=== PATIENT | male | born 1995 | race Caucasian/White ===

== ENCOUNTER 2017-06-20 07:53 | Emergency (ER) | payer MEDICAID, OTHER ==
[2017-06-20 08:07] VITALS: BP 124/72
--- NOTE | 2017-06-20 08:22 | EDM.PDOC ---
ED HPI GENERAL MEDICAL PROBLEM - General Chief Complaint: ENT Problem Stated Complaint: COUGH Time Seen by Provider: 06/20/17 08:06 Source of Information: Reports: Patient, Family History Limitations: Reports: No Limitations - History of Present Illness INITIAL COMMENTS - FREE TEXT/NARRATIVE: 21 y.o.w. came to the ed because of a dry cough for a fwe days, no F/C/N/V or any other acute medical issues. BP 124/74 temp 34.9 pulse 65 pulse ox 98% on RA Onset Date: 06/19/17 Onset Time: 10:00 Duration: Day(s):, Intermittent Location: Reports: Chest Quality: Reports: Other (cough) Severity: Mild Improves with: Reports: Rest Worsens with: Reports: Movement Context: Reports: Other (dry cough) - Related Data Allergies Allergy/AdvReac Type Severity Reaction Status Date / Time No Known Allergies Allergy Verified 06/20/17 08:05 Home Meds: Home Meds Codeine/guaiFENesin [Robitussin AC] 1 ml PO BEDTIME PRN #20 ml 06/20/17 [Rx] Past Medical History - Past Health History Medical/Surgical History: Denies Medical/Surgical History Cardiovascular History: Reports: Other (See Below) Other Cardiovascular History: 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 Social & Family History - Tobacco Use Smoking Status *Q: Never Smoker - Caffeine Use Caffeine Use: Reports: Soda - Recreational Drug Use Recreational Drug Use: No ED ROS ENT - Review of Systems Review Of Systems: See Below Constitutional: Reports: No Symptoms HEENT: Reports: No Symptoms Respiratory: Reports: No Symptoms Cardiovascular: Reports: No Symptoms Endocrine: Reports: No Symptoms GI/Abdominal: Reports: No Symptoms : Reports: No Symptoms Musculoskeletal: Reports: No Symptoms Skin: Reports: No Symptoms Neurological: Reports: No Symptoms Psychiatric: Reports: No Symptoms Hematologic/Lymphatic: Reports: No Symptoms Immunologic: Reports: No Symptoms ED EXAM, ENT - Physical Exam Exam: See Below Exam Limited By: No Limitations General Appearance: Alert, WD/WN, No Apparent Distress Eye Exam: Bilateral Eye: Normal Inspection Ears: Normal External Exam Nose: Normal Inspection Mouth/Throat: Normal Inspection Head: Atraumatic, Normocephalic Neck: Normal Inspection, Supple, Non-Tender Respiratory/Chest: No Respiratory Distress, Lungs Clear Cardiovascular: Normal Peripheral Pulses, Regular Rate, Rhythm GI/Abdominal: Normal Bowel Sounds (Male) Exam: Deferred Rectal (Males) Exam: Deferred Back: Normal Inspection, Full Range of Motion Extremities: Normal Inspection, Normal Range of Motion Neurological: Alert, Oriented, CN II-XII Intact, Normal Cognition, Normal Gait Psychiatric: Normal Affect, Normal Mood Skin: Warm, Dry, Intact, Normal Color, No Rash Lymphatic: No Adenopathy Course - Vital Signs Text/Narrative:: 21 y.o.w. came to the ed because of a dry cough for a fwe days, no F/C/N/V or any other acute medical issues. BP 124/74 temp 34.9 pulse 65 pulse ox 98% on RA PE: WNWD WM =NAD. Lungs clear Impression: nonprod. cough Tx: Cough meds Plan: D/C with instructions Last Recorded V/S: Last Vital Signs Temp 34.9 C L 06/20/17 08:06 Pulse 69 06/20/17 08:06 Resp 18 06/20/17 08:06 BP 124/72 06/20/17 08:06 Pulse Ox 100 06/20/17 08:06 Departure - Departure Time of Disposition: 08:19 Disposition: Home, Self-Care 01 Condition: Good Clinical Impression: Cough in adult - Discharge Information Prescriptions: Codeine/guaiFENesin [Robitussin AC] 1 ml PO BEDTIME PRN #20 ml PRN Reason: severe cough Instructions: Cough, Adult, [id number] Referrals: PCP,None [Primary Care Provider] - Forms: ED Department Discharge Additional Instructions: Please take rubutussin as recommended for severe cough at night, please f/u, come back if your symptoms get worse acutely.
== END 2017-06-20 08:35 | disposition home or self-care (01) ==
LOC: FB.ED 07:53
DX: R05 Cough (principal)
CPT/HCPCS: 99283

== ENCOUNTER 2018-02-23 19:45 | Emergency (ER) | payer MEDICAID ==
[2018-02-23] MEDS ORDERED: Ketorolac 30 MG/ML SDV IM ONE (19:54)
--- NOTE | 2018-02-23 19:59 | EDM.PDOC ---
ED HPI GENERAL MEDICAL PROBLEM - General Chief Complaint: ENT Problem Stated Complaint: GENERAL Time Seen by Provider: 02/23/18 19:50 Source of Information: Reports: Patient, Family History Limitations: Reports: No Limitations - History of Present Illness INITIAL COMMENTS - FREE TEXT/NARRATIVE: Dae comes into [facility] ED this evening with a nonhealing lesion inside the mouth over the past few weeks. He has bitten this area in the past, and chewed at times to manage stress. There has been no bleeding or viktor swelling. He has an appt with PCP tomorrow for managment. 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 ED EXAM, GI/ABD - Physical Exam Exam: See Below Exam Limited By: No Limitations General Appearance: Alert, WD/WN, Anxious Eyes: Bilateral: Normal Appearance, EOMI Ears: Normal External Exam Nose: Normal Inspection Throat/Mouth: Normal Lips, Normal Gums, Normal Voice, Other (minor superficial ulceration involving buccal mucosa R side adjacent to cuspid) Neck: Normal Inspection, Supple, Non-Tender Respiratory/Chest: Lungs Clear, Normal Breath Sounds Cardiovascular: Regular Rate, Rhythm, No Murmur GI/Abdominal Exam: Normal Bowel Sounds, Soft, Non-Tender, No Organomegaly, No Mass (Male) Exam: Deferred Rectal (Males) Exam: Deferred Back Exam: Normal Inspection Extremities: Normal Inspection Neurological: Alert, Oriented, CN II-XII Intact, Normal Cognition, Normal Gait, No Motor/Sensory Deficits Psychiatric: Normal Affect, Anxious Skin Exam: Warm, Dry, Intact, Normal Color Lymphatic: No Adenopathy Course - Vital Signs Text/Narrative:: No meds were dispensed during ED visit. Last Recorded V/S: Last Vital Signs Temp Pulse 85 02/23/18 19:45 Resp 24 H 02/23/18 19:45 BP 113/88 02/23/18 19:45 Pulse Ox 100 02/23/18 19:45 - Orders/Labs/Meds Meds: Medications Discontinued Medications Generic Name Dose Route Start Last Admin Trade Name Lalito PRN Reason Stop Dose Admin Ketorolac Tromethamine 30 mg 02/23/18 19:54 Toradol IM 02/23/18 19:55 ONETIME ONE Departure - Departure Time of Disposition: 20:15 Disposition: Home, Self-Care 01 Condition: Good Clinical Impression: Lesion of buccal mucosa - Discharge Information *PRESCRIPTION DRUG MONITORING PROGRAM REVIEWED*: Not Applicable *COPY OF PRESCRIPTION DRUG MONITORING REPORT IN PATIENT ANN: Not Applicable Referrals: PCP,None [Primary Care Provider] - Forms: ED Department Discharge - Problem List & Annotations (1) Lesion of buccal mucosa SNOMED Code(s): 4461069032997082 Code(s): K13.70 - UNSPECIFIED LESIONS OF ORAL MUCOSA Status: Acute Current Visit: Yes Annotation/Comment:: Keep appt with PCP tomorrow for treatment of suspected benign ulceration. - Problem List Review Problem List Initiated/Reviewed/Updated: Yes - Assessment/Plan Plan: Follow up with PCP.
[2018-02-23 20:05] VITALS: BP 113/88
== END 2018-02-23 20:21 | disposition home or self-care (01) ==
LOC: FB.ED 19:45
DX: K13.70 Unspecified lesions of oral mucosa (principal)
CPT/HCPCS: 99282

== ENCOUNTER 2018-06-30 20:22 | Emergency (ER) | payer MEDICAID ==
[2018-06-30] MEDS ORDERED: Amoxicillin/Clavulanate K 875-125 MG Tab PO ONE (21:34)
--- NOTE | 2018-06-30 21:38 | EDM.PDOC ---
ED HPI GENERAL MEDICAL PROBLEM - General Chief Complaint: Skin Complaint Stated Complaint: RASH Time Seen by Provider: 06/30/18 20:22 Source of Information: Reports: Patient History Limitations: Reports: No Limitations - History of Present Illness INITIAL COMMENTS - FREE TEXT/NARRATIVE: 22 y.o.w.m came to the ed because of a ringworm rash at his right forearm. I have seen this pt a few days ago with a ringworm rash on both forearm a few days ago. He was given a presc. for lotrimin. The rash subsided 100% at his left forerm but got worse at his right forearm. Pt said, he put the lotrimin onto his arm before he tooka shower ant the lotrimin cream may have washed off during the shower. No other acute medical issues. BP 126/66 Pulse 78 RR 18 Pulse ox 98% on RA Temp 36.8 Onset Date: 06/29/18 Onset Time: 09:00 Duration: Day(s):, Intermittent Location: Reports: Upper Extremity, Right Quality: Reports: Other (rash) Severity: Mild Improves with: Reports: None Worsens with: Reports: None Context: Reports: Sick Contact Associated Symptoms: Reports: No Other Symptoms - Related Data Allergies Allergy/AdvReac Type Severity Reaction Status Date / Time No Known Allergies Allergy Verified 06/30/18 20:56 Home Meds: Home Meds Amoxicillin/Potassium Clav [Augmentin 875-125 Tablet] 1 each PO BID #20 tablet 06/30/18 [Rx] Clotrimazole [Lotrimin AF 1% Top Soln] 1 applic .XX BID 07/01/18 [History] Past Medical History - Past Health History Medical/Surgical History: Denies Medical/Surgical History Cardiovascular History: Reports: Other (See Below) Other Cardiovascular History: 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 Social & Family History - Family History Family Medical History: Noncontributory - Caffeine Use Caffeine Use: Reports: Coffee, Soda ED ROS GENERAL - Review of Systems Review Of Systems: See Below Constitutional: Reports: No Symptoms HEENT: Reports: No Symptoms Respiratory: Reports: No Symptoms Cardiovascular: Reports: No Symptoms Endocrine: Reports: No Symptoms GI/Abdominal: Reports: No Symptoms : Reports: No Symptoms Musculoskeletal: Reports: No Symptoms Skin: Reports: Rash (ringworm right forearm) Neurological: Reports: No Symptoms Psychiatric: Reports: No Symptoms Hematologic/Lymphatic: Reports: No Symptoms Immunologic: Reports: No Symptoms ED EXAM, SKIN/RASH Exam: See Below Exam Limited By: No Limitations General Appearance: Alert, WD/WN, Mild Distress Eye Exam: Bilateral Eye: Normal Inspection Ears: Normal External Exam, Normal Canal, Hearing Grossly Normal Nose: Normal Inspection, Normal Mucosa, No Blood Throat/Mouth: Normal Inspection, Normal Lips, Normal Teeth, Normal Gums, Normal Voice, No Airway Compromise Head: Atraumatic, Normocephalic Neck: Normal Inspection, Supple, Non-Tender, Full Range of Motion Respiratory/Chest: No Respiratory Distress, Lungs Clear, Normal Breath Sounds, No Accessory Muscle Use, Chest Non-Tender Cardiovascular: Normal Peripheral Pulses, Regular Rate, Rhythm, No Edema, No Gallop, No JVD, No Murmur, No Rub Peripheral Pulses: 1+: Radial (L) GI/Abdominal: Normal Bowel Sounds, Soft, Non-Tender, No Organomegaly, No Distention, No Abnormal Bruit, No Mass, Pelvis Stable (Male) Exam: Deferred Rectal (Males) Exam: Deferred Back Exam: Normal Inspection, Full Range of Motion Extremities: Normal Inspection, Normal Range of Motion, Non-Tender, No Pedal Edema, Normal Capillary Refill Neurological: Alert, Oriented, CN II-XII Intact, Normal Cognition, Normal Gait Psychiatric: Normal Affect Skin: Warm, Dry, Rash (ringworm rash right forearm) Location, Skin: Upper Extremity, Right Characteristics: Fine, Patchy Lymphatic: No Adenopathy Course - Vital Signs Text/Narrative:: 22 y.o.w.m came to the ed because of a ringworm rash at his right forearm. I have seen this pt a few days ago with a ringworm rash on both forearm a few days ago. He was given a presc. for lotrimin. The rash subsided 100% at his left forerm but got worse at his right forearm. Pt said, he put the lotrimin onto his arm before he tooka shower ant the lotrimin cream may have washed off during the shower. No other acute medical issues. BP 126/66 Pulse 78 RR 18 Pulse ox 98% on RA Temp 36.8 PE: WNWD WM with a ringworm rash right forearm with bacterial superinfection Impression: " Ringworm" right forearm with bacterial super infection Tx: Augmentin Reexam: Pt did well in the ed, will cont to apply Lotrimin onto the afected area after he took a shower Plan: D/C with instructions Last Recorded V/S: Last Vital Signs Temp 36.7 C 06/30/18 20:47 Pulse 60 06/30/18 21:57 Resp 18 06/30/18 21:57 BP 121/62 06/30/18 21:57 Pulse Ox 100 06/30/18 21:57 - Orders/Labs/Meds Meds: Medications Discontinued Medications Generic Name Dose Route Start Last Admin Trade Name Lalito PRN Reason Stop Dose Admin Amoxicillin/Clavulanate Potassium 1 tab 06/30/18 21:34 06/30/18 21:53 Augmentin 875 Mg/125 Mg PO 06/30/18 21:35 1 tab ONETIME ONE Administration Departure - Departure Time of Disposition: 21:35 Disposition: Home, Self-Care 01 Condition: Good Clinical Impression: Ringworm, Cellulitis - Discharge Information Prescriptions: Amoxicillin/Potassium Clav [Augmentin 875-125 Tablet] 1 each PO BID #20 tablet Instructions: Amoxicillin; Clavulanic Acid tablets, Body Ringworm Referrals: PCP,None [Primary Care Provider] - Forms: ED Department Discharge Additional Instructions: Please continue your Lotrimin cream application to right arm. Please take Augmentin as recommended, please follow up at clinic if not improving, come back if your symptoms get worse acutely.
[2018-06-30 21:58] VITALS: BP 121/62
== END 2018-06-30 21:59 | disposition home or self-care (01) ==
LOC: FB.ED 20:22
DX: L03.113 Cellulitis of right upper limb (principal); B35.9 Dermatophytosis, unspecified
CPT/HCPCS: 99282; A9270

== ENCOUNTER 2018-07-04 14:19 | Emergency (ER) | payer MEDICAID ==
[2018-07-04 14:44] VITALS: BP 115/79
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
== END 2018-07-04 15:04 | disposition home or self-care (01) ==
LOC: FB.ED 14:19
DX: T22.412A Corrosion of unspecified degree of left forearm, initial encounter (principal); T22.411A Corrosion of unspecified degree of right forearm, initial encounter
CPT/HCPCS: 99283

== ENCOUNTER 2018-08-11 20:29 | Emergency (ER) | payer MEDICAID ==
--- NOTE | 2018-08-11 22:08 | EDM.PDOC ---
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 1.5 months ago had onset of rash and right forearm left arm. He treated with bleach and follow-up treated with hydroperoxide. Rash has not gone away. She was topical [id number] antifungal cream and a topical antibiotic ointment. The rash has not improved. And the rash is still quite itchy. It has not changed in the past 1.5 months. They have a cat at home but the cat has not been scratching or clawing his arms nor has she slept with patient. - Related Data Allergies Allergy/AdvReac Type Severity Reaction Status Date / Time No Known Allergies Allergy Verified 07/04/18 14:36 Home Meds: Home Meds Amoxicillin/Potassium Clav [Augmentin 875-125 Tablet] 1 each PO BID #20 tablet 06/30/18 [Rx] Clotrimazole [Lotrimin AF 1% Top Soln] 1 applic .XX BID 07/01/18 [History] Fluconazole [Diflucan] 150 mg PO WEEKLY #4 tablet 08/11/18 [Rx] Terbinafine [LamISIL AT 1% Crm] 24 gm TP BID #1 tube 08/11/18 [Rx] Triamcinolone Acetonide [Triamcinolone Acetonide 0.5% Oint] 15 gm .XX BID #1 tube 08/11/18 [Rx] Past Medical History - Past Health History Medical/Surgical History: Denies Medical/Surgical History Cardiovascular History: Reports: Other (See Below) Other Cardiovascular History: 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 ED EXAM, GENERAL - Physical Exam Exam: See Below Exam Limited By: No Limitations (Is short statured anesthetic and then who is very pleasantly engaged in conversation) General Appearance: Alert, WD/WN, No Apparent Distress Eye Exam: Bilateral Eye: Normal Inspection Ears: Normal External Exam, Normal Canal, Hearing Grossly Normal, Normal TMs Ear Exam: Bilateral Ear: Auricle Normal, Canal Normal, TM normal Nose: Normal Inspection, Normal Mucosa, No Blood Throat/Mouth: Normal Inspection, Normal Lips, Normal Teeth, Normal Gums Head: Atraumatic, Normocephalic Neck: Normal Inspection, Supple, Non-Tender, Full Range of Motion Respiratory/Chest: No Respiratory Distress, Other (multiple scars on patient's chest from previous cardiovascular surgery) Cardiovascular: Normal Peripheral Pulses, Regular Rate, Rhythm, No Edema, No Gallop, No JVD, No Murmur, No Rub Peripheral Pulses: 1+: Carotid (L), Carotid (R), Radial (L), Radial (R) GI/Abdominal: Normal Bowel Sounds, Soft, Non-Tender, No Organomegaly, No Distention (Male) Exam: Deferred Rectal (Males) Exam: Deferred Back Exam: Normal Inspection Extremities: Normal Range of Motion, Non-Tender, No Pedal Edema, Normal Capillary Refill, Pedal Edema Neurological: Alert, Oriented, CN II-XII Intact, Normal Cognition, Normal Gait, Normal Reflexes, No Motor/Sensory Deficits Psychiatric: Normal Affect, Normal Mood Skin Exam: Warm, Dry, Intact, Other (Circumferential left dorsal proximal forearm has 2 separate 5 cm oval and a 6 cm oval raised centrifugal border of erythema with central patches of erythematous dry crusting patches within this border. Right forearm has 31 cm long with a proximal oval proximal 6 cm diameter and a distal 10 cm diameter almost "snowmen appearance " of a central patchy erythematous crusted dry dermis and has slightly raised edges. No linear angiopathy or cellulitis noted.) Course - Orders/Labs/Meds Orders: Active Orders 24 hr Category Date Time Status FUNGUS (MYCOLOGY) CULTURE Urgent Lab 08/11/18 21:12 Received Departure - Departure Time of Disposition: 21:00 (Quick look at microscope relates suggests buds but no hyphae seen. This suggested possible rosa. Patient was prescribed Diflucan for possible rosa one tablet a week for 4 weeks also will be using terfenadine twice a day to the right side and formulation and triamcinolone to the left side lesions. He'll follow-up with in a week at that time if the left forearm has improved then can apply the triamcinolone to the right arm to accelerate the right arm lesion healing and decrease the itch. and ingeneral apply the terfenibine bid to both arms.If it is a "ring worm lesion" it probably is trichphyton species and terfinabine should help. If it is rosa ( which was not seeon the skin scraping ) then diflucan should work. I took great pain to try both . there was no suggestion of s lesion under hs finger nails. With his cardiac surg (Abn av canal surgery and hypolastic left ventricle)hx it would be good to make sure he does not end up blood born fungus infection.) Disposition: Home, Self-Care 01 Condition: Good Clinical Impression: Fungal dermatitis, Ringworm, body - Discharge Information *PRESCRIPTION DRUG MONITORING PROGRAM REVIEWED*: Not Applicable *COPY OF PRESCRIPTION DRUG MONITORING REPORT IN PATIENT ANN: Not Applicable Prescriptions: Fluconazole [Diflucan] 150 mg PO WEEKLY #4 tablet Terbinafine [LamISIL AT 1% Crm] 24 gm TP BID #1 tube Triamcinolone Acetonide [Triamcinolone Acetonide 0.5% Oint] 15 gm .XX BID #1 tube Referrals: Lisa Atkins, INVESTIGATIVE ANALYST [Primary Care Provider] - Additional Instructions: It appears that you have a circumferential fungal infection [id number] pharmacy using is not work prescription for 10 - My Orders Last 24 Hours: My Active Orders 08/11/18 21:12 FUNGUS (MYCOLOGY) CULTURE Urgent - Assessment/Plan Last 24 Hours: My Active Orders 08/11/18 21:12 FUNGUS (MYCOLOGY) CULTURE Urgent
[2018-08-11 22:54] VITALS: BP 124/83
== END 2018-08-11 21:35 | disposition home or self-care (01) ==
LOC: FB.ED 20:29
DX: B35.4 Tinea corporis (principal)
CPT/HCPCS: 87101; 87220; 99283

== ENCOUNTER 2019-04-22 03:10 | Emergency (ER) | payer MEDICAID ==
[2019-04-22 03:24] VITALS: BP 114/75; PULSE 84
--- NOTE | 2019-04-22 03:39 | EDM.PDOC ---
ED HPI GENERAL MEDICAL PROBLEM - General Chief Complaint: General Stated Complaint: HEMROID Time Seen by Provider: 04/22/19 03:25 Source of Information: Reports: Patient History Limitations: Reports: No Limitations - History of Present Illness INITIAL COMMENTS - FREE TEXT/NARRATIVE: 23-year-old male who apparently has felt constipated all through yesterday. He states that he felt that he needed to have a bowel movement but he couldn't. He has been able to eat and drink normally today. He has had no vomiting. His had no fevers. His mother gave him an vkyu-jqc-klysqup laxative that was a generic form of Ex-Lax and apparently following this he had some small results at bowel movement and noted some bright red blood at the end of his stool. He only had a small amount of stool. This was that approximately 1 AM. Following the the counter laxative, he was having some diffuse abdominal cramping that was also associated with some nausea. He had no vomiting. He also had had a small amount of fecal incontinence earlier that was somewhat loose. Now he reports mild nausea with some abdominal cramping that he rates as a 5/10. He has been urinating normally. There are no other associated signs or symptoms. There are no other modifying factors. 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 He also had a cardiac catheterization. Social & Family History - Tobacco Use Smoking Status *Q: Never Smoker - Caffeine Use Caffeine Use: Reports: Coffee, Soda - Alcohol Use Alcohol Use History: Yes Alcohol Use Frequency: Rarely - Living Situation & Occupation Occupation: Unemployed Social History Comment: Lives at home with his mother. ED ROS GENERAL - Review of Systems Review Of Systems: See Below Constitutional: Reports: No Symptoms HEENT: Reports: No Symptoms Respiratory: Reports: No Symptoms Cardiovascular: Reports: No Symptoms GI/Abdominal: Reports: Abdominal Pain (Crampy as above), Bloody Stool (Small amount of blood at the end of his bowel movement.), Constipation, Nausea. Denies: Vomiting : Reports: No Symptoms Musculoskeletal: Reports: No Symptoms Skin: Reports: No Symptoms Neurological: Reports: No Symptoms Hematologic/Lymphatic: Reports: No Symptoms Immunologic: Reports: No Symptoms ED EXAM, GENERAL - Physical Exam Exam: See Below Exam Limited By: No Limitations General Appearance: Alert, WD/WN, Mild Distress Eye Exam: Bilateral Eye: EOMI, Normal Inspection, PERRL Ears: Normal External Exam, Hearing Grossly Normal Ear Exam: Bilateral Ear: Auricle Normal Nose: Normal Inspection, Normal Mucosa, No Blood Throat/Mouth: Normal Inspection, Normal Lips, Normal Oropharynx, Normal Voice, No Airway Compromise Head: Atraumatic, Normocephalic Neck: Normal Inspection, Supple, Non-Tender, Full Range of Motion Respiratory/Chest: No Respiratory Distress, Lungs Clear, Normal Breath Sounds, No Accessory Muscle Use, Chest Non-Tender Cardiovascular: Normal Peripheral Pulses, Regular Rate, Rhythm, No Murmur Peripheral Pulses: 2+: Radial (L), Radial (R) GI/Abdominal: Normal Bowel Sounds, Soft, Non-Tender, No Organomegaly, No Distention, No Mass, Other (Nontender with even deep palpation.) Back Exam: Normal Inspection, Full Range of Motion Extremities: Normal Inspection, Normal Range of Motion, Non-Tender, No Pedal Edema, Normal Capillary Refill Neurological: Alert, Oriented, CN II-XII Intact, Normal Cognition, No Motor/ Sensory Deficits Skin Exam: Warm, Dry, Intact, Normal Color, No Rash Course - Vital Signs Last Recorded V/S: Last Vital Signs Temp 37.1 C 04/22/19 03:23 Pulse 84 04/22/19 03:23 Resp 14 04/22/19 03:23 BP 114/75 04/22/19 03:23 Pulse Ox 99 04/22/19 03:23 - Re-Assessments/Exams Free Text/Narrative Re-Assessment/Exam: 04/22/19 03:40: Patient has normal vital signs. His abdominal exam is benign with no pain with palpation. He does have two anal skin tags but I saw no evidence of bleeding. I feel that the stomach cramping is most probably from the rukr-ipb-lbscbtj laxative that the mother gave the patient earlier. Apparently the patient does have MiraLAX that he needs to sisal picker from the pharmacy. I have told the mother to avoid any other donb-abg-ullzlvp laxatives and to get the MiraLAX and give him 2 doses daily until he has good results a bowel movement. In regard to the rectal bleeding, at this point, it does not appear to be of a significant nature but he will need to follow-up with his primary provider through the [facility] this next week. I do not feel any testing is indicated at this time and feel that he is stable for discharge. Mother is in agreement with the plans for discharge and follow-up with his primary provider. Departure - Departure Time of Disposition: 03:45 Disposition: Home, Self-Care 01 Condition: Good Clinical Impression: Abdominal cramping, Rectal bleeding Constipation Qualifiers: Constipation type: unspecified constipation type Qualified Code(s): K59.00 - Constipation, unspecified - Discharge Information Instructions: Constipation, Adult, [id number], Abdominal Pain, Adult, Easy-to -Read, Rectal Bleeding, [id number] Referrals: Thea Benedict NP [Primary Care Provider] - Forms: ED Department Discharge Additional Instructions: Your exam is reassuring. Your vital signs were normal. The abdominal cramping that you are having may be due to the laxative that you took. Do not take anymore of those umbo-att-kfwfiql laxatives. Get the MiraLAX that is waiting for you at the pharmacy your primary provider and take 1 dose twice daily until good results at bowel movement. In regard to the blood per rectum, you will need to follow-up with your primary provider next week for recheck. Increase your fluid intake. Back to the emergency department for worsening pain, vomiting , fever, worsening blood per rectum or any other concerning sign or symptom.
[2019-04-22] MEDS ORDERED: Ondansetron 4 MG Tab.DIS PO ONE (03:50)
== END 2019-04-22 03:59 | disposition home or self-care (01) ==
LOC: FB.ED 03:10
DX: K59.00 Constipation, unspecified (principal); K92.1 Melena
CPT/HCPCS: 99283; A9270

== ENCOUNTER 2019-04-24 21:59 | Emergency (ER) | payer MEDICAID ==
--- NOTE | 2019-04-24 22:21 | EDM.PDOC ---
ED HPI GENERAL MEDICAL PROBLEM - General Chief Complaint: General Stated Complaint: fever Time Seen by Provider: 04/24/19 22:10 Source of Information: Reports: Patient History Limitations: Reports: No Limitations - History of Present Illness INITIAL COMMENTS - FREE TEXT/NARRATIVE: pt is frequent visitor to ER comes with his mother this evening cause she felt he might be warm to tough, on way here pt stated he felt little pain in throat, it does not bother him now, denies any cough, resp sx, congestion, GI or urinary sx or any other medical concerns. his sister has cough and was seen here yesterday and had neg strep. pt appear fine here and denies any distress. 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 He also had a cardiac catheterization. Social & Family History - Family History Family Medical History: Noncontributory - Caffeine Use Caffeine Use: Reports: Coffee, Soda - Living Situation & Occupation Occupation: Unemployed ED ROS GENERAL - Review of Systems Review Of Systems: See Below Constitutional: Reports: No Symptoms HEENT: Reports: No Symptoms Respiratory: Reports: No Symptoms Cardiovascular: Reports: No Symptoms GI/Abdominal: Reports: No Symptoms : Reports: No Symptoms Musculoskeletal: Reports: No Symptoms Skin: Reports: No Symptoms Neurological: Reports: No Symptoms ED EXAM, GENERAL - Physical Exam Exam: See Below Exam Limited By: No Limitations General Appearance: Alert, No Apparent Distress Eye Exam: Bilateral Eye: Normal Inspection Ear Exam: Bilateral Ear: TM normal Nose: Normal Inspection Throat/Mouth: Normal Inspection, Normal Oropharynx Neck: Normal Inspection, Supple, Non-Tender Respiratory/Chest: No Respiratory Distress, Lungs Clear Cardiovascular: Normal Peripheral Pulses, Regular Rate, Rhythm GI/Abdominal: Normal Bowel Sounds, Soft, Non-Tender Extremities: Normal Inspection Course - Vital Signs Text/Narrative:: pt is afebrile here , also asymptomatic on arrival and has nl exam. reassured pt there in nothing to worry about tonight, advised to follow with PCP if farther concerns. Departure - Departure Time of Disposition: 22:20 Disposition: Home, Self-Care 01 Condition: Good Clinical Impression: Fever - Discharge Information Referrals: Lisa Atkins CLINICAL DOCUMENTATION SPEC [Primary Care Provider] -
[2019-04-24 23:28] VITALS: BP 121/71; PULSE 120
== END 2019-04-24 22:25 | disposition home or self-care (01) ==
LOC: FB.ED 21:59
DX: R50.9 Fever, unspecified (principal)
CPT/HCPCS: 99282